=== PATIENT | male | born 1970 | race African-American/Black ===

== ENCOUNTER 2018-08-22 20:03 | Emergency (ER) | payer OTHER ==
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
--- NOTE | 2018-08-25 10:55 | Diagnostic Imaging Report ---
Right shoulder (3 views) HISTORY: Pain No acute abnormalities. No fractures. No dislocation. Narrowing and hypertrophic bone formation noted about the acromioclavicular joint. IMPRESSION: 1. No acute abnormalities 2. Degenerative changes about the acromioclavicular joint
== END 2018-08-22 22:00 | disposition home or self-care (01) ==
LOC: ER 20:03
DX: S16.1XXA Strain of muscle, fascia and tendon at neck level, initial encounter (principal); S46.911A Strain of unspecified muscle, fascia and tendon at shoulder and upper arm level, right arm, initial encounter; V89.2XXA Person injured in unspecified motor-vehicle accident, traffic, initial encounter; Y93.89 Activity, other specified; Y92.89 Other specified places as the place of occurrence of the external cause; Y99.8 Other external cause status
CPT/HCPCS: 72040-TC; 73030-TC-RT; Z7502